=== PATIENT | male | born 1965 | race Two or more races ===

== ENCOUNTER 2018-04-17 07:03 | Day surgery (SDC) | payer OTHER ==
[2018-04-17 07:54] VITALS: BMI 22.8
[2018-04-17] MEDS ORDERED: MIDAZOLAM HCL 2 MG/2 ML SINGLE DOSE VIAL ONE (10:21)
--- NOTE | 2018-04-17 11:06 | OP ---
Operative Note - Note: Operative Date: 04/17/18 Pre-Operative Diagnosis: Left kidney stone Operation: Left ESWL Findings: 2 mm mid pole left kidney stone Post-Operative Diagnosis: Same as Pre-op Surgeon: Edwardo Jin Anesthesia: Fractional
[2018-04-17] MEDS ORDERED: ONDANSETRON 4 MG/2 ML VIAL IVPUSH PRN (11:12)
[2018-04-17] MEDS ORDERED: ACETAMINOPHEN 325 MG TABLET (FP) PO PRN (11:12)
[2018-04-17] MEDS ORDERED: LACTATED RINGERS SOLUTION 1,000 ML IV SCH (11:15)
[2018-04-17 12:52] VITALS: BP 111/74; PULSE 59; TEMP 97.7
== END 2018-04-17 12:45 | disposition home or self-care (01) ==
LOC: JASU-SURG 07:03
PROVIDERS: ATTEND Urology
PROC: 0TF4XZZ Fragmentation in Left Kidney Pelvis, External Approach (ICD-10-PCS; principal; 2018-04-17 09:30)
DX: N20.0 Calculus of kidney (principal)
CPT/HCPCS: 94760

== ENCOUNTER 2023-10-24 04:09 | Day surgery (SDC) | payer OTHER ==
[2023-10-18 11:44] VITALS: BMI 24.2
[2023-10-24 11:37] VITALS: RESP 20
[2023-10-24] MEDS ORDERED: FENTANYL CITRATE/PF 50 MCG/ML VIAL ONE (12:55)
[2023-10-24] MEDS ORDERED: MIDAZOLAM HCL 2 MG/2 ML SINGLE DOSE VIAL ONE (12:56)
[2023-10-24 14:21] VITALS: BP 101/65; PULSE 53; TEMP 98
== END 2023-10-24 15:49 | disposition home or self-care (01) ==
LOC: JASU-SURG 04:09
PROVIDERS: ATTEND Urology
PROC: 0TF3XZZ Fragmentation in Right Kidney Pelvis, External Approach (ICD-10-PCS; principal; 2023-10-24 12:00)
DX: N20.0 Calculus of kidney (principal)